=== PATIENT | male | born 1955 | race Caucasian/White ===

== ENCOUNTER 2018-12-10 02:20 | Inpatient (IN) | payer MEDICARE, MEDICAID ==
[~2018-12-10] VITALS: Ht 170.2 cm; Wt 92.5 kg
[2018-12-10 07:09] LABS: BASOPHILS % 1.3 % (0.0-2.0); EOSINOPHILS % 2.9 % (0.0-5.0); HEMATOCRIT. 33.7 % (42.0-52.0); HEMOGLOBIN. 10.8 g/dL (14.0-18.0); LYMPHOCYTES % 20.9 % (20.0-50.0); MEAN CORPUSCULAR HEMOGLOBIN 28.1 pg (28.0-32.0); MEAN CORPUSCULAR VOLUME 88.1 fL (80.0-94.0); MEAN PLATELET VOLUME 7.9 fl (7.4-10.4); MONOCYTES % 13.9 % (2.0-8.0); PLATELET 269 x1000/uL (130-400); RED BLOOD CELL COUNT 3.83 mill/uL (4.7-6.1); RED CELL DISTRIBUTION WIDTH 17.3 % (11.6-14.6)
[2018-12-10 07:14] LABS: CHLORIDE 105 mEq/L (98-107)
[2018-12-10 07:18] LABS: ETHANOL BLOOD < 10 mg/dL
[2018-12-10 08:11] LABS: *AMPHETAMINES SCREEN URINE NEGATIVE (NEGATIVE); *BARBITURATES SCREEN URINE NEGATIVE (NEGATIVE)
[2018-12-10 08:12] LABS: *BENZODIAZEPINES SCREEN URINE NEGATIVE (NEGATIVE); *COCAINE SCREEN URINE NEGATIVE (NEGATIVE); METHADONE URINE SCREEN NEGATIVE (NEGATIVE)
[2018-12-10 08:13] LABS: CANNABINOID URINE SCREEN NEGATIVE (NEGATIVE); OPIATES URINE SCREEN NEGATIVE (NEGATIVE); PHENCYCLIDINE URINE SCREEN NEGATIVE (NEGATIVE)
[2018-12-10] MEDS ORDERED: GUAIFENESIN 200MG/10ML SUGAR FREE UDC PO PRN (12:30)
[2018-12-10] MEDS ORDERED: DOCUSATE SODIUM 100MG CAPSULE PO PRN (12:30)
[2018-12-10] MEDS ORDERED: ONDANSETRON HCL 4MG/2ML INJ IV PRN (12:30)
[2018-12-10] MEDS ORDERED: HYDROCODONE/ACETAMINOPHEN 5/325MG TABLET PO PRN (12:30)
[2018-12-10] MEDS: ENOXAPARIN 40MG/0.4ML SYR SUBCUT SCH (15:00)
[2018-12-10 15:58] VITALS: BP 102/68
[2018-12-10] MEDS: SODIUM CHLORIDE 0.9% 1,000 ML IV SCH (16:04)
[2018-12-10 17:00] VITALS: BP 93/43
[2018-12-10] MEDS ORDERED: APIX5TAB MT (19:47)
[2018-12-10] MEDS ORDERED: ATOR10TA69 MT (19:48)
[2018-12-10 21:53] VITALS: BP 93/50
[2018-12-11] VITALS: BP 107/74
[2018-12-11 04:00] VITALS: BP 121/79
[2018-12-11] MEDS: SODIUM CHLORIDE 0.9% 1,000 ML IV SCH ×2 (05:09→20:14)
[2018-12-11 06:48] LABS: BASOPHILS % 0.7 % (0.0-2.0); EOSINOPHILS % 0.9 % (0.0-5.0); HEMATOCRIT. 34.4 % (42.0-52.0); HEMOGLOBIN. 11.3 g/dL (14.0-18.0); LYMPHOCYTES % 7.8 % (20.0-50.0); MEAN CORPUSCULAR HEMOGLOBIN 28.6 pg (28.0-32.0); MEAN CORPUSCULAR VOLUME 86.9 fL (80.0-94.0); MEAN PLATELET VOLUME 7.8 fl (7.4-10.4); MONOCYTES % 12.9 % (2.0-8.0); NEUTROPHILS % 77.7 % (40.0-76.0); PLATELET 252 x1000/uL (130-400); RED BLOOD CELL COUNT 3.96 mill/uL (4.7-6.1); RED CELL DISTRIBUTION WIDTH 17.4 % (11.6-14.6)
[2018-12-11 07:03] LABS: CHLORIDE 106 mEq/L (98-107)
[2018-12-11 08:00] VITALS: BP 110/71
[2018-12-11 12:00] VITALS: BP 106/70
[2018-12-11] MEDS: ENOXAPARIN 40MG/0.4ML SYR SUBCUT SCH (14:05)
[2018-12-11 16:00] VITALS: BP 102/60
[2018-12-11 20:00] VITALS: BP 102/61
[2018-12-11] MEDS: ACETAMINOPHEN 325MG TABLET PO PRN (20:18)
[2018-12-12 00:05] VITALS: BP 94/56
[2018-12-12 04:00] VITALS: BP_SYST 90; BP_SYST 94; BP_DIAS 60; BP_DIAS 61
[2018-12-12 08:00] VITALS: BP 99/76
[2018-12-12 12:00] VITALS: BP 103/63
[2018-12-12] MEDS: ACETAMINOPHEN 325MG TABLET PO PRN ×2 (13:08→21:06)
[2018-12-12] MEDS: SODIUM CHLORIDE 0.9% 1,000 ML IV SCH (14:29)
[2018-12-12] MEDS: ENOXAPARIN 40MG/0.4ML SYR SUBCUT SCH (15:18)
[2018-12-12 16:00] VITALS: BP 105/72
[2018-12-12] MEDS: IPRATROPIUM/ALBUTEROL 0.5-3(2.5)MG/3ML NEB HHN PRN (18:12)
[2018-12-12 20:00] VITALS: BP 111/70
[2018-12-13] VITALS: BP 117/69
[2018-12-13 04:00] VITALS: BP 106/73
[2018-12-13] MEDS: SODIUM CHLORIDE 0.9% 1,000 ML IV SCH (07:00)
[2018-12-13 08:00] VITALS: BP 102/67
[2018-12-13] MEDS: IPRATROPIUM/ALBUTEROL 0.5-3(2.5)MG/3ML NEB HHN PRN ×2 (10:22→17:55)
[2018-12-13 12:00] VITALS: BP 109/73
[2018-12-13] MEDS: ENOXAPARIN 40MG/0.4ML SYR SUBCUT SCH (15:00)
[2018-12-13 16:00] VITALS: BP 110/62
[2018-12-13 20:00] VITALS: BP 121/79
[2018-12-13] MEDS: ACETAMINOPHEN 325MG TABLET PO PRN (20:02)
[2018-12-14] VITALS: BP 97/70
[2018-12-14] MEDS: SODIUM CHLORIDE 0.9% 1,000 ML IV SCH ×2 (02:00→16:29)
[2018-12-14] MEDS: IPRATROPIUM/ALBUTEROL 0.5-3(2.5)MG/3ML NEB HHN PRN (03:26)
[2018-12-14 04:00] VITALS: BP 100/72
[2018-12-14 08:20] VITALS: BP 92/51
[2018-12-14 12:00] VITALS: BP 107/73
[2018-12-14 14:02] VITALS: BP 108/76
[2018-12-14] MEDS: ENOXAPARIN 40MG/0.4ML SYR SUBCUT SCH (15:00)
[2018-12-14 16:07] VITALS: BP 96/74
== END 2018-12-14 17:14 | DRG 316 ==
LOC: ER 03:15 → 7WST 09:47 → SUPCPDRO 12:27 → ENRESERV 13:05
PROVIDERS: ADMIT Hospitalist; ATTEND Hospitalist
DX: I95.9 Hypotension, unspecified (principal); I11.0 Hypertensive heart disease with heart failure; I50.9 Heart failure, unspecified; R53.1 Weakness; J44.9 Chronic obstructive pulmonary disease, unspecified; D64.9 Anemia, unspecified; R42 Dizziness and giddiness; F17.210 Nicotine dependence, cigarettes, uncomplicated; R29.6 Repeated falls; Z59.0 Homelessness; Z91.013 Allergy to seafood
CPT/HCPCS: 36415; 71045; 80305; 80320; 82962; 83880; 84484; 93005; 93970; 94640; 96374; 96375; 97161; 99285; J1650; J7620; G0480